=== PATIENT | male | born 1985 | race Two or more races ===

== ENCOUNTER 2024-11-16 23:46 | Emergency (ER) | payer SELFPAY ==
[2024-11-16 23:49] VITALS: BP 120/79; PULSE 92; RESP 19; TEMP 36.6; O2SAT 99
[2024-11-16 23:50] VITALS: BMI 25.8
--- NOTE | 2024-11-17 00:11 | EDNOTE_ITS ---
ED Medical Clearance RME/HPI General Chief complaint: Medical Clearance Stated complaint: MEDICAL CLEARANCE Time Seen by Provider: 11/16/24 23:53 Arrival date/time: 11/16/24 23:46 This is a 39-year-old male that comes in with complaints of needing a medical clearance to go to senior care. Patient was fleeing from the ag service manager for approximately 10 minutes and when he was taken to senior care fell to the floor and stated that he wanted to come to the hospital. Patient reports that he did crystal meth couple hours prior. Patient denies any past medical history. Patient's vital signs are stable. Patient has no complaints at this time. Review of Systems Review of Systems Systems Reviewed: All systems reviewed, normal except as documented Past Medical History Past Medical History Comments PMH COMMENT: meth use ED Exam General General appearance: Present alert and in no apparent distress Head Head exam: Present atraumatic Eye Eye exam: Present normal appearance, PERRL and EOMI ENT ENT exam: Present normal exam, normal oropharynx and mucous membranes moist Neck Neck exam: Present normal inspection, full ROM and trachea midline Chest Chest inspection: Present normal inspection and symmetric chest wall rise Respiratory Respiratory exam: Present normal lung sounds bilaterally Cardiovascular Cardiovascular exam: Present regular rate and normal rhythm Abdominal Exam Abdominal exam: Present soft Extremities Exam Extremities exam: Present normal inspection and full ROM Back Exam Back exam: Present normal inspection and full ROM Neurological Exam Neurological exam: Present alert, oriented X3 and CN II-XII intact Psychiatric Psychiatric exam: Present normal affect and normal mood Skin Skin exam: Present warm, dry, intact and normal color Course Quality Measures none Vital Signs Vital signs: Vital Signs Temperature 97.9 F 11/16/24 23:49 Pulse Rate 92 11/16/24 23:49 Respiratory Rate 19 11/16/24 23:49 Blood Pressure 120/79 11/16/24 23:49 Pulse Oximetry (%) 99 11/16/24 23:49 Oxygen Delivery Method Room Air 11/16/24 23:49 Medical Clearance MDM Narrative MDM Narrative:: Patient discharged to senior care with police clerk vital signs stable Patient data External records reviewed:: [facility] previous records Clinical information provided by:: patient Social determinants that could affect healthcare access:: none Patient has the following chronic illnesses:: meth use How is presenting disease/condition affected by chronic disease/condition?: exacerbated by Evaluation data The following diagnostics were reviewed and interpreted by me:: other (specify) (none ) Lab and/or radiology exams considered but not ordered:: None Interpretation Summary: None Medications / Prescriptions Medications or Prescriptions considered but not ordered:: None Medication administrations:: None Consultations Consultation(s) initiated? (list below): No Diagnosis Medical Clearance Differential Diagnosis: other (Half-Way clearance, meth use) Most likely diagnosis given after review of the tests above:: Methamphetamine use Admission Indicated Admission indicated?: not indicated Admission Request Was there a request for admission?: No Disposition Plan Disposition Plan: Discharge Discharge Attestation Discharge Attestation: The patient and all family members were given an opportunity to ask questions and understood the discharge instructions. Discharge instructions specifically effects, indications for sooner follow up or return to the emergency department, and the expected course of current diagnosis. Patient condition: Stable Discharge Plan Plan Patient Disposition: HOME (Self Care) Patient condition on transfer: Stable Problem List Clinical Impression: Medical clearance for incarceration, Methamphetamine use Patient/Caregiver Discharge Instructions Discharge Activity: activity as tolerated Education Materials: Understanding Methamphetamine ... Additional Instructions: Follow-up with senior care doctor as needed. Please abstain from doing any drugs. Come back to the emergency room if symptoms change or worsen. Print Language: [place] African Stand Alone Forms: Jaye Award Info., Patient Portal Info Letter MARIA G/KAROLINA Supervising Physician MARIA G/KAROLINA Supervising Physician: kayleigh
== END 2024-11-17 00:31 ==
LOC: SERX 11-17 00:51
PROVIDERS: Emergency Provider Emergency Medicine
DX: Z02.89 Encounter for other administrative examinations (principal); F15.90 Other stimulant use, unspecified, uncomplicated
CPT/HCPCS: 99281

== ENCOUNTER 2025-06-04 23:27 | Emergency (ER) | payer SELFPAY ==
[2025-06-04 23:29] VITALS: BMI 30.1
[2025-06-04 23:45] VITALS: BP 131/69; PULSE 95; RESP 18; TEMP 37.6; O2SAT 95
[2025-06-05] MEDS: ACETAMINOPHEN 500 MG TABLET PO (00:53)
[2025-06-05] MEDS: ONDANSETRON ODT 4 MG TABRAP PO (00:53)
[2025-06-05] MEDS: DICYCLOMINE 10 MG CAPSULE PO (00:54)
--- NOTE | 2025-06-05 02:45 | PD.EDNV ---
Nausea/Vomit./Diarrhea-RME/HPI General Chief complaint: Dental/Oral/Throat Stated complaint: FEVER, THROAT HURTS Time Seen by Provider: 06/05/25 00:27 Arrival date/time: 06/04/25 23:27 39M with no significant PMH presents to ED with 1 day of fevers/chills, sore throat, N/V, and non-bloody diarrhea. Limitations: no limitations Related Data Previous Rx's ?Medication ?Instructions ?Recorded ondansetron 4 mg disintegrating 4 mg PO Q8H PRN nausea and 06/05/25 tablet vomiting #14 tabs Allergies Allergy/AdvReac Type Severity Reaction Status Date / Time No Known Allergies Allergy Verified 06/05/25 00:46 Review of Systems Review of Systems Systems Reviewed: All systems reviewed, normal except as documented Constitutional Constitutional: Reports system reviewed and no additional complaints, except as documented, Reports as per HPI, Reports chills, Reports fever(s) and Denies headache(s) ENT Ears, Nose, Mouth, and Throat: Reports as per HPI, Denies disequilibrium, Denies headache(s) and Reports sore throat Cardiovascular Cardiovascular: Reports system reviewed and no additional complaints, except as documented, Denies chest pain and Denies dyspnea Respiratory Respiratory: Reports system reviewed and no additional complaints, except as documented, Denies cough and Denies dyspnea Gastrointestinal Gastrointestinal: Reports system reviewed and no additional complaints, except as documented, Reports as per HPI, Reports abdominal pain, Reports diarrhea, Reports nausea and Reports vomiting Neurologic Neurologic: Reports system reviewed and no additional complaints, except as documented, Denies confusion, Denies disequilibrium and Denies headache(s) Psychiatric Psychiatric: Denies confusion Past Medical History Past Medical History CARDIAC: Negative Congestive Heart Failure RESPIRATORY: Negative Chronic Obstructive Pulmonary Disease (COPD) GENITOURINARY: Negative Renal Disease ENDOCRINE: Negative Diabetes Mellitus Type 1 or Diabetes Mellitus Type 2 Social History SMOKING STATUS: Never smoker ED Exam General Limitations: Present no limitations General appearance: Present alert and in no apparent distress Head Head exam: Present atraumatic Eye Eye exam: Present normal appearance, PERRL and EOMI ENT ENT exam: Present normal exam, normal oropharynx and mucous membranes moist Neck Neck exam: Present normal inspection, full ROM and trachea midline Chest Chest inspection: Present normal inspection and symmetric chest wall rise Respiratory Respiratory exam: Present normal lung sounds bilaterally Cardiovascular Cardiovascular exam: Present regular rate, normal rhythm and normal heart sounds Abdominal Exam Abdominal exam: Present soft and normal bowel sounds Extremities Exam Extremities exam: Present normal inspection and full ROM Back Exam Back exam: Present normal inspection and full ROM Neurological Exam Neurological exam: Present alert, oriented X3 and CN II-XII intact Psychiatric Psychiatric exam: Present normal affect and normal mood Skin Skin exam: Present warm, dry, intact and normal color Course Quality Measures none Orders Category Date Time Status Bedside COVID-19 Antigen Test NOW Care 06/05/25 00:27 Completed Bedside Influenza A&B Antigen Test NOW Care 06/05/25 00:27 Completed Acetaminophen Tab [Tylenol ES Tab] Med 06/05/25 00:27 Discontinued 500 mg PO X1 ONE Dicyclomine [Bentyl] Med 06/05/25 00:27 Discontinued 10 mg PO X1 ONE Ondansetron Odt [Zofran Odt] Med 06/05/25 00:27 Discontinued 4 mg PO X1 ONE Vital Signs Vital signs: Vital Signs Temperature 99.7 F 06/04/25 23:45 Pulse Rate 95 06/04/25 23:45 Respiratory Rate 18 06/04/25 23:45 Blood Pressure 131/69 H 06/04/25 23:45 Pulse Oximetry (%) 95 06/04/25 23:45 Oxygen Delivery Method Room Air 06/04/25 23:45 O2 at 95% on RA and WNLs Nausea/Vomiting/Diarrhea MDM Narrative MDM Narrative:: 39M with no significant PMH presents to ED with 1 day of fevers/chills, sore throat, N/V, and non-bloody diarrhea. Physical exam reveals clear oropharynx. Normal WOB. No ab tenderness. Patietn is afebrile, calm, and alert. Swabs neg. Likely viral gastroenteritis. Meds and prison classification counselor given. Patient data External records reviewed:: [facility] previous records Clinical information provided by:: patient and parent Social determinants that could affect healthcare access:: none Patient has the following chronic illnesses:: none How is presenting disease/condition affected by chronic disease/condition?: no chronic disease Evaluation data The following diagnostics were reviewed and interpreted by me:: lab results Lab and/or radiology exams considered but not ordered:: ordered Interpretation Summary: above Medications / Prescriptions Medications / Prescriptions considered but not ordered:: ordered Medication administrations:: Medication Administration History Discontinued Medications Acetaminophen (Acetaminophen 500 Mg Tablet) 500 mg PO X1 ONE Stop: 06/05/25 00:28 Last Admin: 06/05/25 00:53 Dose: 500 mg Documented By: BEN Dicyclomine HCl (Dicyclomine 10 Mg Capsule) 10 mg PO X1 ONE Stop: 06/05/25 00:28 Last Admin: 06/05/25 00:54 Dose: 10 mg Documented By: BEN Ondansetron HCl (Ondansetron Odt 4 Mg Tabrap) 4 mg PO X1 ONE; Protocol Stop: 06/05/25 00:28 Last Admin: 06/05/25 00:53 Dose: 4 mg Documented By: BEN above Consultations Consultation(s) initiated? (list below): No Diagnosis Nausea Differential Diagnosis: traveler's diarrhea, food poisoning, gastroenteritis, clostridium difficile infection, drug-induced nausea and vomiting and dehydration Most likely diagnosis given after review of the tests above:: gastroenteritis Admission Indicated Admission indicated?: not indicated Admission Request Was there a request for admission?: No Disposition Plan Disposition Plan: Discharge Discharge Attestation Discharge Attestation: The patient and all family members were given an opportunity to ask questions and understood the discharge instructions. Discharge instructions specifically effects, indications for sooner follow up or return to the emergency department, and the expected course of current diagnosis. Patient condition: Stable Discharge Plan Plan Patient Disposition: HOME (Self Care) Discharge Disposition comment: Stable Prescriptions/Referrals Prescriptions/Med Rec: New ondansetron 4 mg tablet,disintegrating 4 mg PO Q8H PRN (Reason: nausea and vomiting) Qty: 14 0RF Problem List Clinical Impression: Gastroenteritis Patient/Caregiver Discharge Instructions Education Materials: ED Diarrhea, Viral (Adult) Additional Instructions: Please follow-up with PCP within 24-48 hours and return immediately if symptoms worsen. Keep hydrated. Advance diet as tolerated. Print Language: Lao Stand Alone Forms: Patient Portal Info Letter MARIA G/KAROLINA Supervising Physician MARIA G/KAROLINA Supervising Physician: Dr. Mccoy
== END 2025-06-05 00:55 | disposition home or self-care (01) ==
LOC: SERX 06-05 01:00
PROVIDERS: Emergency Provider Emergency Medicine
DX: K52.9 Noninfective gastroenteritis and colitis, unspecified (principal)
CPT/HCPCS: 99283; Q0162; A9270